=== PATIENT | male | born 1945 | race Caucasian/White ===

== ENCOUNTER 2018-12-15 18:34 | Emergency (ER) | payer OTHER, MEDICARE ==
[2018-12-15 18:43] VITALS: BP 137/81; PULSE 61; TEMP 98.3
[2018-12-15 20:02] LABS: BASO % 1.5 % (0-2.0); EOS % 3.3 % (0-4.5); HEMATOCRIT 47.9 % (35.4-49); HEMOGLOBIN 15.9 GM/dl (11.7-16.9); LYMPH % 23.8 % (8-40); MCH 29.8 pg (25.7-33.7); MCHC 33.1 g/dl (32.0-35.9); MEAN CELL VOLUME 90.1 fl (80-96); MEAN PLT VOLUME 8.6 fl (7.5-11.1); MONO % 9.7 % (3.8-10.2); NEUT % 61.7 % (42.8-82.8); PLATELET COUNT 181 K/MM3 (134-434); RBC 5.32 M/mm3 (4.00-5.60); RDW 14.6 % (11.9-15.9); WHITE BLOOD COUNT 5.3 K/mm3 (4.0-10.8)
[2018-12-15 20:13] LABS: INR 1.71 (0.82-1.09)
--- NOTE | 2018-12-16 02:51 | PDOC ---
Documentation entered by Heriberto Iverson SCRIBE, acting as scribe for Sadia Thomas MD. Sadia Thomas MD: This documentation has been prepared by the Kishor arreguin Daniel, SCRIBE, under my direction and personally reviewed by me in its entirety. I confirm that the documentation accurately reflects all work, treatment, procedures, and medical decision making performed by me. History of Present Illness - General Chief Complaint: Wound Stated Complaint: BLEEDING TESTICLES - SKIN Time Seen by Provider: 12/15/18 19:19 History Source: Patient, Spouse Exam Limitations: No Limitations - History of Present Illness Initial Comments: 12/15/18 20:12 The patient is a 73 year old male with a past medical history of HTN, cardiac stents, persistent de leon bruises, and afib (on coumadin s/p pacemaker) here today for evaluation of scrotum bleeding. The patient reports that he was taking a shower and noticed that his scrotum was bleeding. He doesnt recall any injury to his scrotum but states that it has been itchy the past month and has been scratching it. He also reports that he scratched his abdomen yesterday which caused bleeding but is not currently bleeding. Patient notes that his coumadin dosage has been changed multiple times recently. Patient denies headache, lightheadedness. Denies fever, chills. Denies chest pain, shortness of breath. Denies nausea, vomiting, diarrhea, abdominal pain. Allergies: NKA Surgical history: knee surgery 08/23 Past History - Past Medical History Allergies/Adverse Reactions: Allergies Allergy/AdvReac Type Severity Reaction Status Date / Time No Known Allergies Allergy Verified 12/15/18 18:36 Home Medications: Ambulatory Orders Alfuzosin HCl [Alfuzosin HCl ER] 10 mg PO DAILY 12/15/18 Metoprolol Succinate [Toprol Xl] 25 mg PO DAILY 12/15/18 Multivit-Min/FA/Lycopen/Lutein [Centrum Silver Tablet] 1 each PO DAILY 12/15/18 Olmesartan/Hydrochlorothiazide [Olmesartan-Hctz 40-25 mg Tab] 1 each PO DAILY Ranitidine HCl [Zantac] 150 mg PO DAILY 12/15/18 Rosuvastatin [Crestor -] 20 mg PO DAILY 05/13/19 Warfarin Sodium [Coumadin] 2.5 mg PO DAILY 12/15/18 Cardiac Disorders: Yes (PACEMAKER) COPD: No HTN: Yes - Suicide/Smoking/Psychosocial Hx Smoking History: Never smoked Have you smoked in the past 12 months: No Information on smoking cessation initiated: No Hx Alcohol Use: No Review of Systems - Review of Systems Able to Perform ROS?: Yes Comments:: 12/15/18 20:13 All systems are reviewed and negative except as noted in the HPI *Physical Exam - Vital Signs Last Vital Signs Temp Pulse Resp BP Pulse Ox 98.3 F 61 18 137/81 99 12/15/18 18:34 12/15/18 18:34 12/15/18 18:34 12/15/18 18:34 12/15/18 18:34 - Physical Exam Comments: 12/15/18 20:13 GENERAL: Awake, alert, and fully oriented, in no acute distress HEAD: No signs of trauma EYES: PERRLA, EOMI, sclera anicteric, conjunctiva clear ENT: Auricles normal inspection, hearing grossly normal, nares patent, oropharynx clear without exudates. Moist mucosa NECK: Normal ROM, supple, no lymphadenopathy, JVD, or masses LUNGS: Breath sounds equal, clear to auscultation bilaterally. No wheezes, and no crackles HEART: Regular rate and rhythm, normal S1 and S2, no murmurs, rubs or gallops ABDOMEN: 1 cm diameter round nevus RLQ ,slight erythema, medial edge; Soft, nontender, normoactive bowel sounds. No guarding, no rebound. No masses GENITAL: +2 mm dark abrasion over lateral aspect of the left scrotum with mild erythema. EXTREMITIES: Normal range of motion, no edema. No clubbing or cyanosis. No cords, erythema, or tenderness NEUROLOGICAL: Cranial nerves II through XII grossly intact. Normal speech, normal gait SKIN: Warm, Dry, normal turgor, no rashes or lesions noted. ED Treatment Course - LABORATORY CBC & Chemistry Diagram: 12/15/18 19:50 - ADDITIONAL ORDERS Additional order review: Laboratory Results 12/15/18 19:50 PT with INR 19.0 H INR 1.71 H 12/15/18 19:50 RBC 5.32 MCV 90.1 MCHC 33.1 RDW 14.6 MPV 8.6 Neutrophils % 61.7 Lymphocytes % 23.8 Monocytes % 9.7 Eosinophils % 3.3 Basophils % 1.5 Medical Decision Making - Medical Decision Making As noted above, this 73-year-old man with a history of cardiac pacemaker/ coronary artery disease/hypertension who is currently on anticoagulation ( warfarin) presents with history of bleeding from scrotal skin. According to the patient and his , persistent copious bleeding from unclear trauma occurred from the left side of the scrotum while at home this evening. The patient can recall only gently scratching the area while taking a shower just prior to onset of bleeding. No other trauma had occurred. Patient also has a history of brief, self resolving bleeding from a nevus on the right lower portion of his abdominal wall; this occurred last week. No other easy bruising/ bleeding episodes. Of note, the patient's warfarin dosing has been increased in the last week because of subtherapeutic INR. Exam is noted: No bleeding or other abnormality seen. CBC and INR were evaluated: CBC is normal; INR is 1.71, still subtherapeutic. Patient should continue current warfarin dosing schedule and follow-up with cardiology office as previously scheduled. It was suggested that he call the postal sorting officer tomorrow to inform today's visit and follow any changes in the dosing schedule as per the postal sorting officer. Also, the patient was strongly advised to follow-up with a exhaust and muffler fitter for full evaluation of a nevus that had bled last week. The patient does not have a exhaust and muffler fitter; he lives in [place] and referral information for Dr. Lira (who practices in [place]) was given to the patient. Patient should apply direct pressure to any rebleeding of the area of the scrotum; bleeding is persistent, he should return to the emergency room. *DC/Admit/Observation/Transfer Diagnosis at time of Disposition: Nevus Abrasion of scrotum Qualifiers: Encounter type: initial encounter Qualified Code(s): S30.813A - Abrasion of scrotum and testes, initial encounter - Discharge Dispostion Disposition: HOME Condition at time of disposition: Stable - Referrals Referrals: Zaida Lira MD [Staff Physician] - - Patient Instructions Printed Discharge Instructions: DI for Abrasion, DI for Warfarin Therapy Additional Instructions: Continue current Coumadin schedule as your postal sorting officer has prescribed If scrotal abrasion begins to bleed again, apply direct pressure to the area for at least 10 minutes Return to ER if bleeding persists Follow-up with postal sorting officer office on December [address] Lira(exhaust and muffler fitter) office tomorrow to arrange follow-up to check mole on abdomen Avoid all leafy green vegetables in your diet because of interaction with Coumadin - Post Discharge Activity
== END 2018-12-15 20:45 | disposition home or self-care (01) ==
LOC: FER 18:34
DX: D29.4 Benign neoplasm of scrotum (principal); S30.813A Abrasion of scrotum and testes, initial encounter; Z79.01 Long term (current) use of anticoagulants; I48.91 Unspecified atrial fibrillation; I10 Essential (primary) hypertension; Z95.0 Presence of cardiac pacemaker
CPT/HCPCS: 36415; 85025; 85610; 99282-25